=== PATIENT | female | born 1985 | race Caucasian/White ===

== ENCOUNTER 2017-11-16 20:10 | Emergency (ER) | payer BC, OTHER ==
[2017-11-16 20:20] VITALS: BP 122/83; PULSE 69; RESP 16; TEMP 98.4; O2SAT 100
--- NOTE | 2017-11-16 20:57 | ED PDOC ---
HPI: General Adult Time Seen by Provider: 11/16/17 20:32 Chief Complaint (Nursing): Breast Problem Chief Complaint (Provider): Breast Problem History Per: Patient History/Exam Limitations: no limitations Onset/Duration Of Symptoms: Days Current Symptoms Are (Timing): Still Present Additional Complaint(s): 32 year old female presents to the emergency department with a complaint of a left-sided breast pain at the 2 o'clock region radiating to the left arm for 1 month. Reports she had breast augmentation in her country, [facility]. Patient takes Tylenol for symptom relief. Denies fever, chills, redness, or trauma. PMD: None Past Medical History Reviewed: Historical Data, Nursing Documentation, Vital Signs Vital Signs: Last Vital Signs Temp 98.4 F 11/16/17 20:17 Pulse 69 11/16/17 20:17 Resp 16 11/16/17 20:17 BP 122/83 11/16/17 20:17 Pulse Ox 100 11/16/17 21:03 - Medical History PMH: No Chronic Diseases - Surgical History Surgical History: No Surg Hx - Family History Family History: States: Unknown Family Hx - Social History Current smoker - smoking cessation education provided: No Alcohol: None Drugs: Denies - Immunization History Hx Tetanus Toxoid Vaccination: No Hx Influenza Vaccination: Yes Hx Pneumococcal Vaccination: No - Home Medications Home Medications: Ambulatory Orders Medication Instructions Recorded 02/03/13 Acetaminophen [Tylenol] 975 mg PO Q6H PRN #0 ter 04/08/13 Ibuprofen [Motrin Tab] 800 mg PO Q6H PRN #20 tab 11/16/17 - Allergies Allergies/Adverse Reactions: Allergies Allergy/AdvReac Type Severity Reaction Status Date / Time No Known Allergies Allergy Unverified 02/03/13 13:52 Review of Systems ROS Statement: Except As Marked, All Systems Reviewed And Found Negative (As per HPI, otherwise negative) Constitutional: Negative for: Fever, Chills, Other (trauma) Musculoskeletal: Positive for: Arm Pain (Left) Skin: Negative for: Other (Redness to the chest or left breast) Physical Exam - Reviewed Nursing Documentation Reviewed: Yes Vital Signs Reviewed: Yes - Physical Exam Appears: Positive for: Well, Non-toxic, No Acute Distress Head Exam: Positive for: ATRAUMATIC, NORMAL INSPECTION, NORMOCEPHALIC Skin: Positive for: Normal Color, Warm, Dry Cardiovascular/Chest: Positive for: Other (Tenderness to upper portion of the left breast. No erythema or pitting edema. No palpable abscess formation or mass. ) Respiratory: Negative for: Accessory Muscle Use, Respiratory Distress Extremity: Positive for: Normal ROM. Negative for: Pedal Edema Neurologic/Psych: Positive for: Alert, Oriented (x3) - ECG O2 Sat by Pulse Oximetry: 100 (RA) Pulse Ox Interpretation: Normal Medical Decision Making Medical Decision Making: Time: 2031 Initial impression: Left breast pain Initial plan: Evaluation of the chest Time: 2053 Patient is medically clear for discharge. Given Rx for Motrin 800 mg. Advised to follow up with specialist. Clinical Impression: Pain of breast Scribe Attestation: Documented by Yara Dubon, acting as a scribe for Baylee Kearns PA-C. Provider Scribe Attestation: All medical record entries made by the Scribe were at my direction and personally dictated by me. I have reviewed the chart and agree that the record accurately reflects my personal performance of the history, physical exam, medical decision making, and the department course for this patient. I have also personally directed, reviewed, and agree with the discharge instructions and disposition. Disposition - Clinical Impression Clinical Impression: Pain of breast Counseled Patient/Family Regarding: Diagnosis, Need For Followup - Disposition Disposition: Routine/Home Disposition Time: 20:54 Condition: STABLE Prescriptions: Ibuprofen [Motrin Tab] 800 mg PO Q6H PRN #20 tab PRN Reason: Pain Instructions: Common Breast Problems Forms: [facility] (Paraguayan) Print Language: [email or web address]
== END 2017-11-16 21:33 | disposition home or self-care (01) ==
LOC: H.ER 20:10
DX: N64.4 Mastodynia (principal)

== ENCOUNTER 2018-06-30 12:45 | Emergency (ER) | payer OTHER ==
[2018-06-30 13:02] VITALS: O2SAT 100
[2018-06-30] MEDS ORDERED: Naproxen 500 MG TAB PO ONE (13:36)
--- NOTE | 2018-06-30 13:37 | ED PDOC ---
HPI: Headache Time Seen by Provider: 06/30/18 13:13 Chief Complaint (Nursing): Female Genitourinary Chief Complaint (Provider): headache History Per: Patient History/Exam Limitations: no limitations Onset/Duration Of Symptoms: Days (x1) Current Symptoms Are (Timing): Still Present Additional Complaint(s): 32 year old female presents to ED with a complaint of right-sided headache associated with right eye pain since this morning. She denies any injury to affected area, fever, chills, or visual changes. Patient is status post miscarriage 5 days ago and reports moderate vaginal bleeding. Otherwise, no abdominal pain, weakness, or paraesthesia. PCP: none provided Past Medical History Reviewed: Historical Data, Nursing Documentation, Vital Signs Vital Signs: Last Vital Signs Temp 98.6 F 06/30/18 13:02 Pulse 66 06/30/18 13:02 Resp 15 06/30/18 13:02 BP 107/69 06/30/18 13:02 Pulse Ox 100 06/30/18 13:02 - Medical History PMH: No Chronic Diseases - Family History Family History: States: Unknown Family Hx - Immunization History Hx Tetanus Toxoid Vaccination: No Hx Influenza Vaccination: Yes Hx Pneumococcal Vaccination: No - Home Medications Home Medications: Ambulatory Orders Medication Instructions Recorded 02/03/13 Acetaminophen [Tylenol] 975 mg PO Q6H PRN #0 ter 04/08/13 Ibuprofen [Motrin Tab] 800 mg PO Q6H PRN #20 tab 11/16/17 Naproxen [Naprosyn] 500 mg PO Q12H #20 tab 06/30/18 - Allergies Allergies/Adverse Reactions: Allergies Allergy/AdvReac Type Severity Reaction Status Date / Time No Known Allergies Allergy Unverified 02/03/13 13:52 Review of Systems ROS Statement: Except As Marked, All Systems Reviewed And Found Negative Constitutional: Negative for: Fever, Chills Eyes: Positive for: Pain (right-sided). Negative for: Vision Change Gastrointestinal: Negative for: Abdominal Pain Genitourinary Female: Positive for: Vaginal Bleeding Neurological: Positive for: Headache (right-sided). Negative for: Weakness (or paraesthesia) Physical Exam - Reviewed Nursing Documentation Reviewed: Yes Vital Signs Reviewed: Yes - Physical Exam Appears: Positive for: Well, Non-toxic, No Acute Distress Head Exam: Positive for: ATRAUMATIC, NORMAL INSPECTION, NORMOCEPHALIC Skin: Positive for: Normal Color Eye Exam: Positive for: Normal appearance, EOMI, PERRL ENT: Positive for: Normal ENT Inspection. Negative for: Pharyngeal Erythema Neck: Positive for: Normal, Supple Cardiovascular/Chest: Positive for: Regular Rate, Rhythm Respiratory: Positive for: Normal Breath Sounds. Negative for: Respiratory Distress Gastrointestinal/Abdominal: Positive for: Normal Exam, Soft. Negative for: Tenderness Back: Positive for: Normal Inspection Extremity: Positive for: Normal ROM (upper/lower) Neurologic/Psych: Positive for: Alert, recovery rn II-XII (grossly intact), Oriented (x3). Negative for: Motor/Sensory Deficits, Aphasia - ECG O2 Sat by Pulse Oximetry: 100 (RA) Pulse Ox Interpretation: Normal Medical Decision Making Medical Decision Making: Time: 1334 Initial Plan: * Beta-HCG Time: 1450 --Beta-HC.22 Scribe Attestation: Documented by Yanira Rios, acting as a scribe for Leo Small MD. Provider Scribe Attestation: All medical record entries made by the Scribe were at my direction and personally dictated by me. I have reviewed the chart and agree that the record accurately reflects my personal performance of the history, physical exam, medical decision making, and the department course for this patient. I have also personally directed, reviewed, and agree with the discharge instructions and disposition. Disposition - Clinical Impression Clinical Impression: Headache - Patient ED Disposition Is Patient to be Admitted: No Counseled Patient/Family Regarding: Studies Performed, Diagnosis, Need For Followup, Rx Given - Disposition Referrals: [facility] [Outside] Disposition: Routine/Home Disposition Time: 16:35 Condition: FAIR Prescriptions: Naproxen [Naprosyn] 500 mg PO Q12H #20 tab Instructions: Headache, Adult Forms: [employer] (Chinese) Print Language: ROMANSH
[2018-06-30] MEDS ORDERED: Naproxen 500 MG TAB PO STA (16:02)
--- NOTE | 2018-06-30 16:32 | CT ---
Date of service: 06/30/2018 PROCEDURE: CT HEAD WITHOUT CONTRAST. HISTORY: r/o bleed COMPARISON: None available. TECHNIQUE: Axial computed tomography images were obtained through the head/brain without intravenous contrast. Radiation dose: Total exam DLP = 775.27 mGy-cm. This CT exam was performed using one or more of the following dose reduction techniques: Automated exposure control, adjustment of the mA and/or kV according to patient size, and/or use of iterative reconstruction technique. FINDINGS: HEMORRHAGE: No intracranial hemorrhage. BRAIN: Normal arthur-white matter differentiation and density are appreciated throughout the cerebrum and cerebellum with the brainstem appearing unremarkable as well. There is no mass effect. There is no suspicious extra-axial fluid collection and the midline brain anatomy appears diffusely unremarkable. VENTRICLES: Unremarkable. No hydrocephalus. CALVARIUM: No destructive bony lesion or displaced fracture identified including through the skullbase. PARANASAL SINUSES: Unremarkable as visualized. No significant inflammatory changes. MASTOID AIR CELLS: Unremarkable as visualized. No inflammatory changes. OTHER FINDINGS: None. IMPRESSION: Normal CT of the Head.
[2018-06-30 16:54] VITALS: BP 112/81; PULSE 60; RESP 16; TEMP 98.5
== END 2018-06-30 16:55 | disposition home or self-care (01) ==
LOC: H.ER 12:45
DX: R51 Headache (principal)